=== PATIENT | male | born 1990 | race Hispanic/Latino ===

== ENCOUNTER 2018-08-07 20:51 | Emergency (ER) | payer SELFPAY ==
[2018-08-07 21:33] LABS: Urine Blood TRACE (NEG); Urine Glucose NEGATIVE (NEG); Urine Protein 2+ (NEG)
[2018-08-07 21:48] LABS: Urine Bacteria <20 /HPF (NONE SEEN); Urine Culture Reflex Order REFLEXED; Urine Mucus MOD /HPF (NONE SEEN); Urine RBC <5 /HPF (NONE SEEN)
--- NOTE | 2018-08-07 22:07 | EDPHYS ---
Physician Documentation [facility] Name: Alban Alfonso Age: 28 yrs Sex: Male : 1990 Arrival Date: 08/07/2018 Time: 20:55 Bed 15 Private MD: ED Physician Calos Richards HPI: 08/07 23:12 This 28 yrs old Male presents to ER via Ambulatory with complaints of tw4 Abdominal Pain, Urinary Problem. 23:12 The patient presents with urinary symptoms, dysuria. Onset: The symptoms/episode tw4 began/occurred today. Modifying factors: The symptoms are alleviated by nothing, the symptoms are aggravated by urinating, sexual intercourse. Associated signs and symptoms: The patient has no apparent associated signs or symptoms. Severity of symptoms: At their worst the symptoms were moderate, in the emergency department the symptoms have resolved. The patient has not experienced similar symptoms in the past. Historical: - Allergies: 20:59 No Known Allergies; aj1 - Home Meds: 20:59 None [Active]; aj1 - PMHx: 20:59 None; aj1 - PSHx: 20:59 None; aj1 - Immunization history:: Flu vaccine is not up to date. - Social history:: Smoking status: Patient uses tobacco products, 4 cigarettes a day. - Ebola Screening: : Patient denies travel to an Ebola-affected area in the 21 days before illness onset. ROS: 23:12 Constitutional: Negative for fever, chills, and weight loss, Cardiovascular: Negative tw4 for chest pain, palpitations, and edema, Respiratory: Negative for shortness of breath, cough, wheezing, and pleuritic chest pain, Abdomen/GI: Negative for abdominal pain, nausea, vomiting, diarrhea, and constipation, MS/Extremity: Negative for injury and deformity, Skin: Negative for injury, rash, and discoloration, Neuro: Negative for headache, weakness, numbness, tingling, and seizure. Exam: 23:12 Constitutional: This is a well developed, well nourished patient who is awake, alert, tw4 and in no acute distress. Head/Face: Normocephalic, atraumatic. Chest/axilla: Normal chest wall appearance and motion. Nontender with no deformity. No lesions are appreciated. Cardiovascular: Regular rate and rhythm with a normal S1 and S2. No gallops, murmurs, or rubs. Normal PMI, no JVD. No pulse deficits. Respiratory: Lungs have equal breath sounds bilaterally, clear to auscultation and percussion. No rales, rhonchi or wheezes noted. No increased work of breathing, no retractions or nasal flaring. Vital Signs: 20:59 BP 124 / 89; Pulse 98; Resp 18; Temp 98.1; Pulse Ox 98% on R/A; Weight 99.79 kg (R); aj1 Height 5 ft. 7 in. (170.18 cm) (R); Pain 0/10; 22:00 BP 117 / 77; Pulse 73; Resp 18; Pulse Ox 100% on R/A; jb4 20:59 Body Mass Index 34.46 (99.79 kg, 170.18 cm) aj1 MDM: 21:03 Patient medically screened. tw4 23:12 Differential diagnosis: nonspecific abdominal pain, urinary retention, prostatitis, tw4 urethritis. Data reviewed: vital signs, nurses notes. Counseling: I had a detailed discussion with the patient and/or guardian regarding: the historical points, exam findings, and any diagnostic results supporting the discharge/admit diagnosis. Special discussion: I discussed with the patient/guardian in detail that at this point there is no indication for admission to the hospital. It is understood, however, that if the symptoms persist or worsen the patient needs to return immediately for re-evaluation. 08/07 21:19 Order name: Urine Dipstick--Ancillary (enter results); Complete Time: 21:44 cc 08/07 21:44 Interpretation: Normal except: UESTR 3+; UBLD TRACE; UPROT 2+. tw4 08/07 21:19 Order name: Urine Microscopic Only; Complete Time: 22:06 jb4 08/07 21:19 Order name: Urine Dipstick-Ancillary (obtain specimen); Complete Time: 21:19 cc 08/07 21:49 Order name: Urine Culture EDMS Administered Medications: No medications were administered Disposition: 08/07/18 22:07 Discharged to Home. Impression: Urethritis and urethral syndrome. - Condition is Stable. - Discharge Instructions: Urethritis, Adult. - Prescriptions for Levaquin 500 mg Oral Tablet - take 1 tablet by ORAL route once daily for 7 days; 7 tablet. - Medication Reconciliation Form, Thank You Letter, Antibiotic Education, Prescription Opioid Use form. - Follow up: Private Physician; When: Upon discharge from the Emergency Department; Reason: Further diagnostic work-up, Recheck today's complaints, Continuance of care. - Problem is new. - Symptoms have improved. Signatures: Dispatcher [employer] EDMS Mya Avendaño RN RN aj1 Kady Chandler James, RN RN jb4 Calos Richards MD MD tw4 Corrections: (The following items were deleted from the chart) 22:29 22:07 08/07/2018 22:07 Discharged to Home. Impression: Urethritis and urethral jb4 syndrome. Condition is Stable. Forms are Medication Reconciliation Form, Thank You Letter, Antibiotic Education, Prescription Opioid Use. Follow up: Private Physician; When: Upon discharge from the Emergency Department; Reason: Further diagnostic work-up, Recheck today's complaints, Continuance of care. Problem is new. Symptoms have improved. tw4
--- NOTE | 2018-08-07 22:07 | ER ---
Nurse's Notes [facility] Name: Alban Alfonso Age: 28 yrs Sex: Male : 1990 Arrival Date: 08/07/2018 Time: 20:55 Bed 15 Private MD: Diagnosis: Urethritis and urethral syndrome Presentation: 08/07 20:56 Presenting complaint: Patient states: Dysuria, urinary frequency since yesterday aj1 morning. Denies fever. Denies flank pain. Transition of care: patient was not received from another setting of care. Onset of symptoms was August 06, 2018. Risk Assessment: Do you want to hurt yourself or someone else? Patient reports no desire to harm self or others. Initial Sepsis Screen: Does the patient meet any 2 criteria? HR > 90 bpm. No. Patient's initial sepsis screen is negative. Does the patient have a suspected source of infection? Yes: Dysuria/Frequency/Urgency/UTI. Care prior to arrival: None. 20:56 Method Of Arrival: Ambulatory aj1 20:56 Acuity: CAMELIA 3 aj1 Triage Assessment: 20:59 General: Appears in no apparent distress. comfortable, Behavior is calm, cooperative, aj1 appropriate for age. Pain: Denies pain. Neuro: Level of Consciousness is awake, alert, obeys commands. Cardiovascular: Patient's skin is warm and dry. Respiratory: Airway is patent Respiratory effort is even, unlabored, Respiratory pattern is regular, symmetrical. GI: No signs and/or symptoms were reported involving the gastrointestinal system. : Reports burning with urination, urinary frequency. Derm: No signs and/or symptoms reported regarding the dermatologic system. Skin is pink, warm \T\ dry. normal. Historical: - Allergies: 20:59 No Known Allergies; aj1 - Home Meds: 20:59 None [Active]; aj1 - PMHx: 20:59 None; aj1 - PSHx: 20:59 None; aj1 - Immunization history:: Flu vaccine is not up to date. - Social history:: Smoking status: Patient uses tobacco products, 4 cigarettes a day. - Ebola Screening: : Patient denies travel to an Ebola-affected area in the 21 days before illness onset. Screenin:00 Abuse screen: Denies threats or abuse. Nutritional screening: No deficits noted. jb4 Tuberculosis screening: No symptoms or risk factors identified. Fall Risk None identified. Assessment: 21:33 General: Appears in no apparent distress. uncomfortable, Behavior is calm, cooperative, jb4 appropriate for age. Pain: Denies pain. Neuro: Level of Consciousness is awake, alert, obeys commands, Oriented to person, place, time, situation. Cardiovascular: Patient's skin is warm and dry. Respiratory: Airway is patent Respiratory effort is even, unlabored, Respiratory pattern is regular, symmetrical. GI: Abdomen is flat, non-distended, Bowel sounds present X 4 quads. Abd is soft and non tender X 4 quads. : Urine is cloudy, The penis is reddened. Reports burning with urination, pain with urination, urgency, urinary frequency, Pain during erections and swelling of the penis. EENT: No signs and/or symptoms were reported regarding the EENT system. Derm: Skin is intact, Skin is pink, warm \T\ dry. Musculoskeletal: Circulation, motion, and sensation intact. 22:28 Reassessment: Patient appears in no apparent distress at this time. Patient and/or jb4 family updated on plan of care and expected duration. Pain level reassessed. Patient is alert, oriented x 3, equal unlabored respirations, skin warm/dry/pink. Patient denies pain at this time. Vital Signs: 20:59 BP 124 / 89; Pulse 98; Resp 18; Temp 98.1; Pulse Ox 98% on R/A; Weight 99.79 kg (R); aj1 Height 5 ft. 7 in. (170.18 cm) (R); Pain 0/10; 22:00 BP 117 / 77; Pulse 73; Resp 18; Pulse Ox 100% on R/A; jb4 20:59 Body Mass Index 34.46 (99.79 kg, 170.18 cm) aj1 ED Course: 20:55 Patient arrived in ED. do 20:59 Triage completed. aj1 20:59 Arm band placed on Patient placed in an exam room. aj1 21:00 Patient has correct armband on for positive identification. Placed in gown. Bed in low jb4 position. Call light in reach. Side rails up X 1. Pulse ox on. NIBP on. 21:03 Calos Richards MD is Attending Physician. tw4 21:18 Jozef Hanson, RN is Primary Nurse. jb4 22:29 No provider procedures requiring assistance completed. Patient did not have IV access jb4 during this emergency room visit. Administered Medications: No medications were administered Outcome: 22: Discharge ordered by . tw4 : Discharged to home ambulatory. jb4 22: Condition: stable 22:29 Discharge instructions given to patient, Instructed on discharge instructions, follow up and referral plans. medication usage, Demonstrated understanding of instructions, follow-up care, medications, Prescriptions given X 1. 22:29 Patient left the ED. jb4 Signatures: Mya Avendaño, RN RN aj1 Grisel Rodgers James, RN RN jb4 Calos Richards MD MD tw4
== END 2018-08-07 22:29 | disposition home or self-care (01) ==
LOC: ER 20:51
DX: N34.2 Other urethritis (principal); N34.3 Urethral syndrome, unspecified
CPT/HCPCS: 81003; 81015; 87086; 87088; 99283

== ENCOUNTER 2018-12-10 19:38 | Emergency (ER) | payer SELFPAY ==
--- NOTE | 2018-12-10 20:08 | ER ---
Nurse's Notes [facility] Name: Alban Alfonso Age: 28 yrs Sex: Male : 1990 Arrival Date: 12/10/2018 Time: 19:41 Bed 28 Private MD: Diagnosis: Exposure to herpes Presentation: 12/10 19:47 Presenting complaint: Patient states: The person I was last with was told her has la1 herpes yesterday and I have some spots around my mouth and genitals. He was given a prescription for an antiviral and I think I need it as well. Transition of care: patient was not received from another setting of care. Onset of symptoms was December 10, 2018. Risk Assessment: Do you want to hurt yourself or someone else? Patient reports no desire to harm self or others. Initial Sepsis Screen: Does the patient meet any 2 criteria? No. Patient's initial sepsis screen is negative. Does the patient have a suspected source of infection? No. Patient's initial sepsis screen is negative. Care prior to arrival: None. 19:47 Method Of Arrival: Ambulatory la1 19:47 Acuity: CAMELIA 4 la1 Historical: - Allergies: 19:47 No Known Allergies; la1 - PMHx: 19:47 None; la1 - Immunization history:: Adult Immunizations up to date. - Social history:: Smoking status: Patient uses tobacco products, smokes one pack cigarettes per day. - Ebola Screening: : No symptoms or risks identified at this time. Screenin:17 Abuse screen: Denies threats or abuse. Denies injuries from another. Nutritional rv screening: No deficits noted. Tuberculosis screening: No symptoms or risk factors identified. Fall Risk None identified. Assessment: 20:17 Pain: Denies pain. Respiratory: Airway is patent Respiratory effort is even, Breath rv sounds are clear bilaterally. EENT: Throat is clear. 20:18 General: Appears in no apparent distress. comfortable, Behavior is calm, cooperative. rv Neuro: Level of Consciousness is awake, alert, obeys commands, Oriented to person, place, time, situation. Cardiovascular: Capillary refill < 3 seconds. GI: No signs and/or symptoms were reported involving the gastrointestinal system. : No signs and/or symptoms were reported regarding the genitourinary system. Derm: Skin is intact. Musculoskeletal: No signs and/or symptoms reported regarding the musculoskeletal system. Vital Signs: 19:48 BP 143 / 96; Pulse 105; Resp 18; Temp 97.5; Pulse Ox 98% on R/A; Weight 99.79 kg; la1 Height 5 ft. 7 in. (170.18 cm); 20:20 BP 137 / 81; Pulse 98; Resp 18 S; Pulse Ox 100% on R/A; rv 19:48 Body Mass Index 34.46 (99.79 kg, 170.18 cm) la1 ED Course: 19:41 Patient arrived in ED. es 19:47 Arm band placed on left wrist. la1 19:48 Marly Elder FNP-C is [facility]. snw 19:48 Kurt Hanley MD is Attending Physician. snw 19:48 Triage completed. la1 20:17 Patient has correct armband on for positive identification. Placed in gown. Bed in low rv position. Call light in reach. Side rails up X 1. Pulse ox on. NIBP on. 20:18 No provider procedures requiring assistance completed. Patient did not have IV access rv during this emergency room visit. Administered Medications: 20:10 Drug: Acyclovir 800 mg Route: PO; rv 20:17 Follow up: Response: Medication administered at discharge. rv Outcome: 20:08 Discharge ordered by . snw 20:19 Discharged to home ambulatory. rv 20:19 Condition: good 20:19 Discharge instructions given to patient, Instructed on discharge instructions, follow up and referral plans. medication usage, Demonstrated understanding of instructions, follow-up care, medications, Prescriptions given X 1. 20:21 Patient left the ED. rv Signatures: Marly Elder FNP-C FNP-Joceline Nguyễn Lee, RN RN la1 Kolton Machado RN RN rv
--- NOTE | 2018-12-10 20:08 | EDPHYS ---
Physician Documentation [facility] Name: Alban Alfonso Age: 28 yrs Sex: Male : 1990 Arrival Date: 12/10/2018 Time: 19:41 Bed 28 Private MD: ED Physician Kurt Hanley HPI: 12/10 20:15 This 28 yrs old Male presents to ER via Ambulatory with complaints of Sore snw Throat. 20:15 The patient presents with sore throat. The patient describes throat pain as raw. Onset: snw The symptoms/episode began/occurred suddenly. Severity of symptoms: At their worst the symptoms were very mild. Associated signs and symptoms: The patient has no apparent associated signs or symptoms. The patient has not experienced similar symptoms in the past. The patient has not recently seen a physician. pt's main concern is for prophylaxis for herpes. Historical: - Allergies: 19:47 No Known Allergies; la1 - PMHx: 19:47 None; la1 - Immunization history:: Adult Immunizations up to date. - Social history:: Smoking status: Patient uses tobacco products, smokes one pack cigarettes per day. - Ebola Screening: : No symptoms or risks identified at this time. ROS: 20:15 Constitutional: Negative for fever, chills, and weight loss, Eyes: Negative for injury, snw pain, redness, and discharge, Neck: Negative for injury, pain, and swelling, Cardiovascular: Negative for chest pain, palpitations, and edema, Respiratory: Negative for shortness of breath, cough, wheezing, and pleuritic chest pain, Abdomen/GI: Negative for abdominal pain, nausea, vomiting, diarrhea, and constipation, Back: Negative for injury and pain, MS/Extremity: Negative for injury and deformity, Skin: Negative for injury, rash, and discoloration, Neuro: Negative for headache, weakness, numbness, tingling, and seizure, Psych: Negative for depression, anxiety, suicide ideation, homicidal ideation, and hallucinations. 20:15 ENT: Positive for sore throat. 20:15 : Positive for sores to area around buttock. Exam: 20:15 Constitutional: This is a well developed, well nourished patient who is awake, alert, snw and in no acute distress. Head/Face: Normocephalic, atraumatic. Eyes: Pupils equal round and reactive to light, extra-ocular motions intact. Lids and lashes normal. Conjunctiva and sclera are non-icteric and not injected. Cornea within normal limits. Periorbital areas with no swelling, redness, or edema. 20:15 Neck: Trachea midline, no thyromegaly or masses palpated, and no cervical lymphadenopathy. Supple, full range of motion without nuchal rigidity, or vertebral point tenderness. No Meningismus. Chest/axilla: Normal chest wall appearance and motion. Nontender with no deformity. No lesions are appreciated. Cardiovascular: Regular rate and rhythm with a normal S1 and S2. No gallops, murmurs, or rubs. Normal PMI, no JVD. No pulse deficits. Respiratory: Lungs have equal breath sounds bilaterally, clear to auscultation and percussion. No rales, rhonchi or wheezes noted. No increased work of breathing, no retractions or nasal flaring. Abdomen/GI: Soft, non-tender, with normal bowel sounds. No distension or tympany. No guarding or rebound. No evidence of tenderness throughout. Back: No spinal tenderness. No costovertebral tenderness. Full range of motion. Skin: Warm, dry with normal turgor. Normal color with no rashes, no lesions, and no evidence of cellulitis. MS/ Extremity: Pulses equal, no cyanosis. Neurovascular intact. Full, normal range of motion. Neuro: Awake and alert, GCS 15, oriented to person, place, time, and situation. Cranial nerves II-XII grossly intact. Motor strength 5/5 in all extremities. Sensory grossly intact. Cerebellar exam normal. Normal gait. 20:15 ENT: Mouth: Tongue: aphthous ulcer to posterior aspect of tongue, two areas under lower lip with tops shaved off, Dental exam: normal, Voice: is normal. Vital Signs: 19:48 BP 143 / 96; Pulse 105; Resp 18; Temp 97.5; Pulse Ox 98% on R/A; Weight 99.79 kg; la1 Height 5 ft. 7 in. (170.18 cm); 20:20 BP 137 / 81; Pulse 98; Resp 18 S; Pulse Ox 100% on R/A; rv 19:48 Body Mass Index 34.46 (99.79 kg, 170.18 cm) la1 MDM: 19:51 Patient medically screened. snw Administered Medications: 20:10 Drug: Acyclovir 800 mg Route: PO; rv 20:17 Follow up: Response: Medication administered at discharge. rv Disposition: 22:24 Co-signature as Attending Physician, Kurt Hanley MD. pkl Disposition: 12/10/18 20:08 Discharged to Home. Impression: Exposure to herpes. - Condition is Stable. - Discharge Instructions: Genital Herpes, Sexually Transmitted Disease, Safe Sex. - Prescriptions for Valtrex 1 g Oral Tablet - take 1 tablet by ORAL route every 12 hours for 10 days; 20 tablet. - Medication Reconciliation Form, Thank You Letter, Antibiotic Education, Prescription Opioid Use form. - Follow up: Private Physician; When: 2 - 3 days; Reason: Recheck today's complaints, Continuance of care, Re-evaluation by your physician. Follow up: Emergency Department; When: As needed; Reason: Worsening of condition. Signatures: Dispatcher [employer] EDIA Kurt Hanley MD MD pkl Marly Elder, RIVERBOAT MASTER-C RIVERBOAT MASTER-Csnw Alli Quinonez RN RN laKolton Chávez RN RN rv Corrections: (The following items were deleted from the chart) 19:56 19:48 Group A Streptococcus Rapid Sc+BA.LAB.BRZ ordered. EDIA EDIA 19:56 19:48 Influenza Screen (A \T\ B)+BA.LAB.BRZ ordered. [facility] EDIA 20:21 20:08 12/10/2018 20:08 Discharged to Home. Impression: Exposure to herpes. Condition is rv Stable. Forms are Medication Reconciliation Form, Thank You Letter, Antibiotic Education, Prescription Opioid Use. Follow up: Private Physician; When: 2 - 3 days; Reason: Recheck today's complaints, Continuance of care, Re-evaluation by your physician. Follow up: Emergency Department; When: As needed; Reason: Worsening of condition. snw
[2018-12-10] MEDS ORDERED: ACYCLOVIR 400 MG TABLET ONE (20:18)
== END 2018-12-10 20:21 | disposition home or self-care (01) ==
LOC: ER 19:38
DX: B00.9 Herpesviral infection, unspecified (principal); F17.210 Nicotine dependence, cigarettes, uncomplicated
CPT/HCPCS: 99283

== ENCOUNTER 2022-03-19 19:14 | Emergency (ER) | payer SELFPAY ==
--- NOTE | 2022-03-19 19:38 | ER ---
Nurse's Notes [facility] [place], [place] Name: Alban Alfonso Age: 31 yrs Sex: Male : 1990 Arrival Date: 03/19/2022 Time: 19:16 Bed Waiting Private MD: Diagnosis: Presentation: 03/19 19:23 Chief complaint: Patient states: Heart palpitations, dizzy, SOB, throat feels tight, ld1 headache. Pt thinks they have high blood pressure. Coronavirus screen: At this time, the client does not indicate any symptoms associated with coronavirus-19. Ebola Screen: No symptoms or risks identified at this time. Initial Sepsis Screen: Does the patient meet any 2 criteria? No. Patient's initial sepsis screen is negative. Does the patient have a suspected source of infection? No. Patient's initial sepsis screen is negative. Risk Assessment: Do you want to hurt yourself or someone else? Patient reports no desire to harm self or others. Onset of symptoms was March 19, 2022. 19:23 Method Of Arrival: Ambulatory ld1 19:23 Acuity: CAMELIA 3 ld1 Triage Assessment: 19:27 General: Appears in no apparent distress. comfortable, Behavior is calm, cooperative, ld1 appropriate for age. Pain: Denies pain. EENT: No signs and/or symptoms were reported regarding the EENT system. Neuro: Level of Consciousness is awake, alert, obeys commands, Oriented to person, place, time, situation. Cardiovascular: Capillary refill < 3 seconds Patient's skin is warm and dry. Respiratory: Reports shortness of breath Airway is patent Respiratory effort is even, unlabored. Respiratory: Onset: The symptoms/episode began/occurred gradually, the patient has mild shortness of breath. GI: Abdomen is round non-distended. : No signs and/or symptoms were reported regarding the genitourinary system. Derm: No signs and/or symptoms reported regarding the dermatologic system. Musculoskeletal: No signs and/or symptoms reported regarding the musculoskeletal system. Historical: - Allergies: 19:27 No Known Allergies; ld1 - Home Meds: 19:27 None [Active]; ld1 - PMHx: 19:27 None; ld1 - PSHx: 19:27 None; ld1 - Immunization history:: Adult Immunizations up to date, Client reports having NOT received the Covid vaccine. - Social history:: Smoking status: Patient denies any tobacco usage or history of. Patient/guardian denies using alcohol. Assessment: 19:34 Reassessment: Pt felt uncomfortable. did not want to do the EKG. Stated that "she" felt ld1 uncomfortable and she was not willing to expose herself to complete the EKG. Attempted to persuade pt to stay and get checked out. Pt did not want to get EKG done at this time. Pt eloped from triage. Vital Signs: 19:23 BP 148 / 83; Pulse 83; Resp 18; Temp 98.8(TE); Pulse Ox 98% on R/A; Weight 104.33 kg; ld1 Height 5 ft. 6 in. (167.64 cm); Pain 0/10; 19:23 Body Mass Index 37.12 (104.33 kg, 167.64 cm) ld1 ED Course: 19:16 Patient arrived in ED. bp1 19:27 Triage completed. ld1 19:27 Arm band placed on right wrist. ld1 Administered Medications: No medications were administered Outcome: 19:37 Patient left the ED. ld1 Signatures: Nano Felton Lauren, RN RN ld1
[2022-03-19 19:47] VITALS: BP 148/83; TEMP 98.8; O2SAT 98
== END 2022-03-19 19:37 | disposition left against medical advice (07) ==
LOC: ER 19:14
DX: Z53.21 Procedure and treatment not carried out due to patient leaving prior to being seen by health care provider (principal)
CPT/HCPCS: 99281

== ENCOUNTER 2023-09-28 11:15 | Emergency (ER) | payer SELFPAY ==
--- NOTE | 2023-09-28 12:38 | EDPHYS ---
Physician Documentation [facility] Name: Alban Alfonso Age: 33 yrs Sex: Male : 1990 Arrival Date: 09/28/2023 Time: 11:15 Bed 11 Private MD: ED Physician Boom Squires HPI: 09/28 12:35 This 33 yrs old Male presents to ER via Ambulatory with complaints of Finger kb Injury. 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 Historical: - Allergies: 11:25 No Known Allergies; aa5 - PMHx: 11:25 None; aa5 - PSHx: 11:25 None; aa5 - Immunization history:: Last tetanus immunization: unknown. - Social history:: Smoking status: Reported history of juuling and/or vaping. ROS: 12:35 Constitutional: Negative for fever, chills, and weight loss, kb 12:35 Skin: Positive for avulsion, of the palmar aspect of distal phalanx of right ring finger, 12:35 All other systems are negative, Exam: 12:35 Constitutional: This is a well developed, well nourished patient who is awake, alert, kb and in no acute distress. Head/Face: Normocephalic, atraumatic. ENT: Moist Mucous membranes Cardiovascular: Regular rate Respiratory: Respirations even and unlabored. No increased work of breathing. Talking in full sentences MS/ Extremity: Pulses equal, no cyanosis. Neurovascular intact. Full, normal range of motion. Neuro: Awake and alert, GCS 15, oriented to person, place, time, and situation. Moves all extremities. Normal gait. 12:35 Skin: injury, avulsion(s), a small of the palmar aspect of distal phalanx of right ring finger, Vital Signs: 11:20 BP 140 / 99; Pulse 83; Resp 20 S; Temp 97.3(TE); Pulse Ox 98% on R/A; aa5 13:09 Weight 108.86 kg; me1 MDM: 11:18 Patient medically screened. kb 12:35 Differential diagnosis: Abrasion, laceration, partial amputation, avulsion. Data kb reviewed: vital signs, nurses notes. Counseling: I had a detailed discussion with the patient and/or guardian regarding the historical points, exam findings, and any diagnostic results supporting the discharge/admit diagnosis, the need for outpatient follow up, a family practitioner, to return to the emergency department if symptoms worsen or persist or if there are any questions or concerns that arise at home. 09/28 11:18 Order name: Wound Care; Complete Time: 12:43 kb 09/28 11:18 Order name: Wound dressing; Complete Time: 12:43 kb Administered Medications: 12:40 Drug: Tetanus-Diphtheria Toxoid IM Adult 0.5 ml IM once; Provide Vaccine Information me1 Statement (VIS). 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: [employer]; Exp: Sat Mar 24 2025; Lot #: [id number]; Series: 1 of 1; Patient Consent: Obtained; Date/Time: ; Source Name: Alban Alfonso; Source Relationship: Self; Address Information: [address] [place] [address]; ; Education: Provided; VIS Presented Date: ; VIS Publication: Tetanus/Diphtheria (Td) Vaccine VIS 02/09/2017 (historic)} Route: IM; Site: right deltoid; 13:10 Follow up: Response: No adverse reaction me1 13:10 Drug: [place] PO 10 mg-325 mg 1 tabs PO once Route: PO; me1 13:18 Follow up: Response: No adverse reaction me1 Disposition Summary: 09/28/23 12:37 Discharge Ordered Notes: Location: Home kb Condition: Stable kb Diagnosis - Avulsion laceration of right fourth digit kb - Avulsion laceration of right fourth digit, hand kb Followup: kb - With: Emergency Department - When: As needed - Reason: Worsening of condition Followup: kb - With: Private Physician - When: 2 - 3 days - Reason: Recheck today's complaints, Continuance of care, Re-evaluation by your physician Discharge Instructions: - Discharge Summary Sheet kb - Deep Skin Avulsion kb Forms: - Medication Reconciliation Form kb - Thank You Letter kb - Antibiotic Education kb - Prescription Opioid Use kb - Patient Portal Instructions kb - Leadership Thank You Letter kb - Work release form me1 Signatures: Karine West FNP-C FNP-Milana Barrera, RN RN aa5 Sharonda Clarke, RN RN me1
--- NOTE | 2023-09-28 12:38 | ER ---
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 aa5 Bleeding noted to right ring finger, pressure dressing applied and bleeding controlled. 11:20 Coronavirus screen: At this time, the client does not indicate any symptoms associated aa5 with coronavirus-19. Ebola Screen: Patient denies travel to an Ebola-affected area in the 21 days before illness onset. Initial Sepsis Screen: Does the patient meet any 2 criteria? No. Patient's initial sepsis screen is negative. Does the patient have a suspected source of infection? No. Patient's initial sepsis screen is negative. Risk Assessment: Do you want to hurt yourself or someone else? Patient reports no desire to harm self or others. Onset of symptoms was September 28, 2023. 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 - Social history:: Smoking status: Reported history of juuling and/or vaping. Screenin:14 [facility] ED Fall Risk Assessment (Adult) History of falling in the last 3 months, me1 including since admission No falls in past 3 months (0 pts) Confusion or Disorientation No (0 pts) Intoxicated or Sedated No (0 pts) Impaired Gait No (0 pts) Mobility Assist Device Used No (0 pt) Altered Elimination No (0 pt) Score/Fall Risk Level 0 - 2 = Low Risk. Abuse screen: Denies threats or abuse. Nutritional screening: No deficits noted. Tuberculosis screening: No symptoms or risk factors identified. 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 Pain: Complains of pain in right hand and palmar aspect of distal phalanx of right ring finger Pain does not radiate. Pain currently is 8 out of 10 on a pain scale. Quality of pain is described as throbbing, Pain began suddenly, Is continuous. Neuro: Level of Consciousness is awake, alert, obeys commands, Oriented to person, place, time, situation, Appropriate for age. Cardiovascular: Capillary refill < 3 seconds Patient's skin is warm and dry. Respiratory: Airway is patent Respiratory effort is even, unlabored, Respiratory pattern is regular, symmetrical. Derm: Wound noted right hand and palmar aspect of distal phalanx of right ring finger Wound is avulsion to pad of right ring finger. Musculoskeletal: avulsion to pad of right ring finger. Vital Signs: 11:20 BP 140 / 99; Pulse 83; Resp 20 S; Temp 97.3(TE); Pulse Ox 98% on R/A; aa5 13:09 Weight 108.86 kg; me1 ED Course: 11:16 Patient arrived in ED. rg4 11:17 Karine West FNP-C is PHCP. kb 11:18 Boom Squires MD is Attending Physician. kb 11:20 Arm band placed on. aa5 11:27 Triage completed. aa5 12:38 Sharonda Clarke, THALIA is Primary Nurse. me1 13:14 Patient has correct armband on for positive identification. Bed in low position. Call me1 light in reach. Side rails up X 1. Provided Education on: POC. Verbalized understanding. . 13:14 No provider procedures requiring assistance completed. Patient did not have IV access me1 during this emergency room visit. Administered Medications: 12:40 Drug: Tetanus-Diphtheria Toxoid IM Adult 0.5 ml IM once; Provide Vaccine Information me1 Statement (VIS). 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: [employer]; Exp: Sat Mar 24 2025; Lot #: [id number]; Series: 1 of 1; Patient Consent: Obtained; Date/Time: ; Source Name: Alban Alfonso; Source Relationship: Self; Address Information: [address] [place] [id number]; ; Education: Provided; VIS Presented Date: ; VIS Publication: Tetanus/Diphtheria (Td) Vaccine VIS 02/09/2017 (historic)} Route: IM; Site: right deltoid; 13:10 Follow up: Response: No adverse reaction me1 13:10 Drug: [place] PO 10 mg-325 mg 1 tabs PO once Route: PO; me1 13:18 Follow up: Response: No adverse reaction me1 Medication: 13:14 Vaccine Information Statement (VIS) provided today. Questions and/or concerns me1 addressed. VIS edition date: June 06, 2021. Outcome: 12:37 Discharge ordered by MD. chen 13:18 Patient left the ED. me1 Signatures: Karine West, GARYC LINDA-Milana Barrera, RN RN Mattie Garcia4 Sharonda Clarke RN RN me1
[2023-09-28] MEDS ORDERED: TDAP (DIPHTH,PERTUSS(ACELL),TET VAC) 0.5 ML VIAL IMVAC ONE (12:53)
[2023-09-28] MEDS ORDERED: HYDROCODONE/APAP 10/325 TAB ONE (13:22)
[2023-09-28 13:35] VITALS: BP 140/99; TEMP 97.3; O2SAT 98
== END 2023-09-28 13:18 | disposition home or self-care (01) ==
LOC: ER 11:15
DX: S61.214A Laceration without foreign body of right ring finger without damage to nail, initial encounter (principal); Z23 Encounter for immunization
CPT/HCPCS: 90471; 99284